=== PATIENT | male | born 1970 | race Caucasian/White ===

== ENCOUNTER 2016-10-09 06:04 | Inpatient (IN) | payer BC ==
[~2016-10-09] VITALS: Ht 182.9 cm; Wt 158.8 kg
[~2016-10-09 06:04] MED LIST: DAILY MULTIPLE1 EACH PO; GLYXAMBI 25 MG1 EACH PO; HYDROCHLOROTH12.5 M3 PO; KEFLEX500 MG PO; LOSARTAN POTASS50 MG PO; METFORMIN HCL500 MG PO; MOTRIN800 MG PO; SAW PALMETTO160 MG PO
[2016-10-09 07:09] VITALS: BP 138/82
[2016-10-09 07:23] LABS: POINT-OF-CARE METER ID UU14174212
[2016-10-09 11:45] VITALS: BP 135/87
[2016-10-09 19:48] VITALS: BP 126/75
[2016-10-09 23:16] VITALS: BP 131/90
[2016-10-10 04:00] VITALS: BP 136/79
[2016-10-10 06:42] LABS: HEMATOCRIT 44.9 % (38.0-50.0); MCH 30.9 PG (29.0-34.0); MCHC 33.6 G/DL (30.0-36.0); MCV 91.8 FL (86-99); MEAN PLAT.VOLUME 9.9 uM^3 (9.0-12.4); PLATELET COUNT 234 K/uL (156-360); RBC DIS.WIDTH-CV 14.1 % (11.8-14.6); RBC DIS.WIDTH-SD 47.2 % (39-53); RED BLOOD COUNT 4.89 M/uL (4.00-5.50)
[2016-10-10 06:52] LABS: WHITE BLOOD COUNT 10.1 K/uL (4.1-10.2)
[2016-10-10 07:07] LABS: ANION GAP 13 MEQ/L (2-14); CHLORIDE 105 MEQ/L (99-109); GFR ESTIMATE (CALCULATED) > 59 mL/min/; GLUCOSE 121 mg/dL (70-99); POTASSIUM 4.3 MEQ/L (3.7-5.4); SAMPLE HEMOLYSIS CHECK 1; SAMPLE ICTERIC CHECK 0; SAMPLE LIPEMIA CHECK 0; SODIUM 141 MEQ/L (136-147); UREA NITROGEN (BUN) 9 mg/dL (9-23)
[2016-10-10 07:50] VITALS: BP 166/93
[2016-10-10] MEDS ORDERED: HYDROCODON-ACE1 EAC7 PO (07:59)
== END 2016-10-10 14:20 | disposition home or self-care (01) | DRG 621 ==
LOC: 2SOUTH 06:04 → 2EASTP 11:47
PROVIDERS: Surgery
PROC: 0DB64Z3 Excision of Stomach, Percutaneous Endoscopic Approach, Vertical (ICD-10-PCS; principal; 2016-10-09)
DX: E66.01 Morbid (severe) obesity due to excess calories (principal); E11.9 Type 2 diabetes mellitus without complications; I10 Essential (primary) hypertension; G47.30 Sleep apnea, unspecified; Z68.43 Body mass index [BMI] 50.0-59.9, adult; R60.9 Edema, unspecified
CPT/HCPCS: 80048; 82948; 83735; 84100; 85027; C9113; J0330; J0690; J1644; J1650; J1815; J2250; J2405; J2550; J3010; J3480; J7120; S0020